=== PATIENT | female | born 1995 | race Caucasian/White ===

== ENCOUNTER → 2021-08-29 15:17 | Outpatient (CLI) | payer OTHER, BC, SELFPAY ==
[2021-08-29 18:46] LABS: Hep C Virus Ab w/Reflex Quant NEGATIVE s/c (NEGATIVE)
[2021-08-31 08:06] LABS: Varicella IgG Antibody 167 index (Immune >165)
[2021-09-01 23:23] LABS: AFP, Serum 59.8 ng/mL (.); Calc Gestational Age Ultrasound (.); Estriol, Free 2.78 ng/mL (.); Inhibin A, Dimeric 157.16 pg/mL (.); Inhibin A, MoM 0.99 (.); Maternal Ethnicity Caucasian (.); Maternal Weight 146 lbs (.); Number of Fetuses No (.); OSBR Risk 1 IN 2591 (.); Results Report (.); Test Results *Screen Negative* (.); hCG, MoM 0.56 (.); hCG, Serum 19247 mIU/mL (.)
== END ==
PROVIDERS: PCP Registered Nurse; Referring Provider Family Medicine; Visit Provider Family Medicine
DX: Z34.00 Encounter for supervision of normal first pregnancy, unspecified trimester (principal); Z3A.16 16 weeks gestation of pregnancy
CPT/HCPCS: 36415; 82105; 82677; 84702; 86336; 86787; 86803

== ENCOUNTER → 2021-09-22 13:53 | Outpatient (CLI) | payer BC, OTHER, SELFPAY ==
--- NOTE | 2021-09-22 13:54 | DI.US.S_ITS ---
PROCEDURE: US OB >= 14 WEEKS FETUS INDICATIONS: 20 WEEK ANATOMY SCAN. OUTSIDE/PRIOR DATING DATA: Last menstrual period (LMP): 04/11/21 LMP-based estimated date of delivery (KENNETH): 01/16/22 First dating scan (date and location): 09/22/21 Estimated date of delivery (KENNETH) from first dating scan: 02/01/22 TECHNIQUE: Real-time scanning was performed of the fetus, with image documentation and biometric measurements. COMPARISON: None. FINDINGS: General: A single living intrauterine gestation is present. Presentation: Cephalic Placenta: Placental position is anterior , without previa. Amniotic fluid index: 10.6 cm, normal range is 5-24 cm. heart rate: 145 beats per minute. Maternal cervical canal: 3.6 cm long. Normal lower limit is 2.5 cm. biometrics: Biparietal diameter: 5.1 cm, 21 weeks 4 days Head circumference: 19.6 cm, 21 weeks 0 days Abdominal circumference: 15.6 cm, 20 weeks 5 days Femur length: 3.5 cm, 21 weeks 0 days Clinically estimated gestational age: 23 weeks 3 days Composite gestational age from present scan: 21 weeks 1 day Estimated weight and percentile: 382 g Anatomic survey: Neuro: Ventricles are non-dilated at less than 10 mm. Cisterna magna and cerebellum are not well seen. Nuchal skin fold: Not well seen. Face: The head position was low in the pelvis limiting evaluation of the profile. Spine: No evidence for spina bifida. Heart: 4-chambered heart is present. Left ventricle outflow tract appears within normal limits. Right ventricle outflow tract not well seen. Diaphragm: Diaphragm is intact. Stomach: Left-sided stomach is present. Kidneys: No hydronephrosis. Normal is less than 5 mm in 2nd trimester, less than 7 mm in 3rd trimester. Cord: 3-vessel cord has orthotopic insertion. Bladder: Normal in size. Extremities: All 4 extremities identified. IMPRESSION: 1. Single living intrauterine in cephalic position with composite gestational age of 21 weeks 1 day. 2. head position located inferiorly in the pelvis limiting evaluation of the facial profile, cerebellum, nuchal fold, and cisterna magna. We strive to produce accurate, complete, and clear reports of imaging services. To assist us in improving patient care, this report was composed using standard report templates and voice recognition software. Therefore, it may contain abnormal punctuation, insertions and/or omissions. Occasional wrong-word or sound-alike substitutions may occur. Though we review the report and make efforts to correct it, we do recommend that the report be read carefully in proper context to recognize any text inaccuracies. Dictated by: Buster Roland M.D. on 09/22/2021 at 18:38 Approved by: Buster Roland M.D. on 09/22/2021 at 18:49
== END ==
PROVIDERS: PCP Registered Nurse; Referring Provider Family Medicine; Visit Provider Family Medicine
DX: Z34.82 Encounter for supervision of other normal pregnancy, second trimester (principal); Z3A.21 21 weeks gestation of pregnancy
CPT/HCPCS: 76811; 76817

== ENCOUNTER → 2021-10-24 09:30 | Outpatient (CLI) | payer BC, OTHER, SELFPAY ==
--- NOTE | 2021-10-24 09:31 | DI.US.S_ITS ---
PROCEDURE: US OB FOLLOW UP INDICATIONS: FOLLOW UP ANATOMY OUTSIDE/PRIOR DATING DATA: Last menstrual period (LMP): April 11, 2020. LMP-based estimated date of delivery (KENNETH): January 16, 2022. First dating scan (date and location): [facility]; September 22, 2021. Estimated date of delivery (KENNETH) from first dating scan: February 01, 2022. TECHNIQUE: Real-time scanning was performed of the fetus, with image documentation and biometric measurements. COMPARISON: September 22, 2021 FINDINGS: General: A single living intrauterine gestation is present. Presentation: Vertex. Amniotic fluid index: 20.9 cm, normal range is 5-24 cm. Single deepest vertical pocket is 7.3 cm. heart rate: 150 beats per minute. Maternal cervical canal: 3.2 cm long. Normal lower limit is 2.5 cm. Other: Ventricles: Bilateral prominence. Right ventricle measures 15.7 mm. Left ventricle measures 10.3 mm. Facial profile: Appears normal Nuchal region: Not evaluated secondary to gestational age. Outflow tracts: Appear normal IMPRESSION: Single intrauterine gestation as detailed above with bilateral prominent ventricles as detailed above. We strive to produce accurate, complete, and clear reports of imaging services. To assist us in improving patient care, this report was composed using standard report templates and voice recognition software. Therefore, it may contain abnormal punctuation, insertions and/or omissions. Occasional wrong-word or sound-alike substitutions may occur. Though we review the report and make efforts to correct it, we do recommend that the report be read carefully in proper context to recognize any text inaccuracies. Dictated by: Brendan Casper M.D. on 10/24/2021 at 11:49 Approved by: Brendan Casper M.D. on 10/24/2021 at 11:52
== END ==
PROVIDERS: PCP Registered Nurse; Referring Provider Family Medicine; Visit Provider Family Medicine
DX: Z36.2 Encounter for other antenatal screening follow-up (principal); Z3A.24 24 weeks gestation of pregnancy
CPT/HCPCS: 76816

== ENCOUNTER → 2021-11-09 10:00 | Outpatient (CLI) | payer BC, OTHER, SELFPAY ==
[2021-11-09 13:18] LABS: Add Manual Diff / Slide Review NO; Basophils Absolute Auto 0 /uL (0-100); Basophils Percent Auto 0.2 % (0-2); Eosinophils Absolute Auto 100 /uL (0-450); Eosinophils Percent Auto 0.6 % (2-4); Hematocrit 33.3 % (36-46); Hemoglobin 11.4 g/dL (12.0-16.0); Lymphocytes Absolute Auto 2000 /uL (1100-4500); Lymphocytes Percent Auto 20.4 % (25-40); Mean Corpuscular HGB Conc 34.3 % (30-36); Mean Corpuscular Hemoglobin 34.5 PG (26-34); Mean Corpuscular Volume 100.6 fL (80-100); Monocytes Absolute Auto 700 /uL (0-900); Monocytes Percent Auto 7.2 % (3-14); Neutrophils Absolute Auto 7000 /uL (1500-7000); Neutrophils Percent Auto 71.6 % (50-75); Platelet Count 339 X10^3/uL (150-400); Red Blood Cell Count 3.31 X10^6/uL (4.0-5.2); Red Cell Distribution Width 13.1 % (11.6-14.8); White Blood Cell Count 9.8 X10^3/uL (4.5-11.0)
[2021-11-09 13:30] LABS: GTT (PREG) 1 Hour PP 50gm Dose 122 mg/dL (76-139)
== END ==
PROVIDERS: PCP Registered Nurse; Referring Provider Family Medicine; Visit Provider Family Medicine
DX: Z34.92 Encounter for supervision of normal pregnancy, unspecified, second trimester (principal); Z3A.25 25 weeks gestation of pregnancy
CPT/HCPCS: 36415; 82950; 85025

== ENCOUNTER 2021-12-16 11:06 | Inpatient (IN) | payer BC, OTHER, SELFPAY ==
[2021-12-16 11:35] VITALS: BP 112/69
[2021-12-16] MEDS: MAGNESIUM SULFATE 20 GM/500 ML IV.SOLN IV (11:50)
[2021-12-16] MEDS: LACTATED RINGERS 1,000 ML 100 ML IV (11:50)
--- NOTE | 2021-12-16 12:15 | PM.OBHP.IH.1 ---
OB HPI Date/Time Date of admission: 12/16/21 Date Patient Seen: 12/16/21 Time Patient Seen: 12:15 History of Present Condition Chief complaint: Eval of Labor/poss water broke/red tint discharge KENNETH Calculator Estimated Delivery Date Method Current WG Current Estimate 02/04/22 Manual 32w 6d Final KENNETH - TETE Other Estimates 01/16/22 LMP (Certain) 35w 4d 02/01/22 Ultrasound #1 33w 2d 02/04/22 Ultrasound #2 32w 6d Estimated Gestational Age (weeks): 32w5d : 1 Para: 0 Narrative: Pt is a 26yo at 32w6d who presented with concerns for ROM. She reports that around 9:30am she felt a gush of fluids. Since then she has continued to leak fluid. No vaginal bleeding. She started to contract around 2 hours ago, about every 3-5 minutes. She states they are uncomfortable but she is able to talk through them. The pt continues to feel her baby move regularly. The pts is complicated by ventriculomegaly, followed by [facility]. She recently had a MRI completed and Neurodevelomental appt. Pt was also found to have a funneling cervix at her [facility] ultrasound. care: good care, initiated at week # (4) and pounds weight gain (27) Dating criteria OB: based on 1st trimester US only Ultrasounds: normal 1st trimester US and abnormal US findings Medical complications OB: none Preadmission Labs Last OB Lab Results: Hematocrit 35.3 % (36-46) L 12/16/21 12:00 12/16/21 Hemoglobin 12.2 g/dL (12.0-16.0) 12/16/21 12:00 12/16/21 Hepatitis C Antibody Negative s/c (NEGATIVE) 08/29/21 15:40 08/29/21 Varicella-Zoster IgG Antibody 167 index (Immune >165) 08/29/21 15:40 08/29/21 Glucose 1 Hour 122 mg/dL (76-139) 11/09/21 11:14 11/09/21 Group B Streptococcus (PCR) Pending 12/16/21 12:00 12/16/21 -: Chlamydia screen: negative, Gonorrhea screen: negative and Urine: negative Genetic Screens: Quad screen: Normal and Cell-free DNA: Normal External Labs Blood type OB HPI: B (+) positive -: Antibody screen: negative, HBsAG: negative, HIV: negative, RPR/VDLR: negative and Urine: negative HCAB: negative Evaluation Evaluation Baseline heart rate: 140 Variability: Moderate (11-25) monitor accelerations: Present Monitor Decelerations: Absent Contraction Frequency (minutes): 5 Status: Category l PFS Medical History (Updated 10/28/21 @ 10:20 by Carlos Ingram LPN) Adopted person Anxiety (~2019) OCD (obsessive compulsive disorder) Seasonal allergies Surgical History (Updated 09/11/21 @ 15:30 by Genesis Francis) Anesthesia H/O of nasal cauterization History of tonsillectomy and adenoidectomy Social History marital status: number of children: 0 household members: spouse lives independently: Yes caregiver/support person: No pets and animals: Yes (1 dog, 3 cats: aware, safe.) education level: college (Engineering.) 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 Getting lots of fruit.) daily servings fruits/ve-4 caffeine: No Type(s) of exercise: walking and normal ROM and activity frequency: 3-4 times per week Meds Home Medications and Allergies Home Medications Medication Instructions Recorded Confirmed Type doxylamine succinate 25 mg tablet 25 mg PO BEDTIME PRN 08/25/21 08/25/21 History (Unisom (doxylamine)) prenat.vits,enoc,hju-rorl-dsnen 1 tab PO DAILY 08/25/21 08/25/21 History pyridoxine (vitamin B6) 100 mg 100 mg PO DAILY tab 08/25/21 08/25/21 History tablet Allergies Allergy/AdvReac Type Severity Reaction Status Date / Time grass pollen Allergy Mild Itchy Verified 08/25/21 14:14 eyes, runny nose. tree and shrub pollen Allergy Mild Itchy Verified 08/25/21 14:14 eyes, runny nose OB Exam Narrative Exam Narrative: Gen: NAD, sitting comfortably in bed, appears well CV: RRR, no murmurs Resp: clear to auscultation bilaterally Abd: soft, nontender, gravid : normal external genitalia, copious amniotic fluid in vagina, cervix appears 1-2cm dilated Ext: no edema Objective Labs Result Diagrams: 12/16/21 12:00 Assessment and Plan Assessment and Plan Assessment and Plan narrative: 26yo at 32w6d here with PPROM and gross ROM. Due to prematurity, discussed case with Dr Quinones at the , who accepts transfer of care. Pt will transfer via airlift. Baby is currently vertex, 1-2cm on speculum exam. Pt is currently stable for transfer. Pt was COVID positive on 12/06, repeat today was negative. complicated by ventriculomegaly and cervical funneling. - Bethamethasone given at 12:27pm - Ampicillin 2g running - Azithromycin 1g given - Magnesium 4g bolus given - Magnesium 2g/hr running - Repeat COVID testing negative - GBS pending
[2021-12-16] MEDS: MAGNESIUM SULFATE 4 GM/100 ML PIGGYBACK IV (12:26)
[2021-12-16] MEDS: BETAMETHASONE 30 MG/5 ML MDV 12 MG IM (12:27)
[2021-12-16 12:35] LABS: Add Manual Diff / Slide Review NO; Basophils Absolute Auto 0 /uL (0-100); Basophils Percent Auto 0.3 % (0-2); Eosinophils Absolute Auto 0 /uL (0-450); Eosinophils Percent Auto 0.5 % (2-4); Hematocrit 35.3 % (36-46); Hemoglobin 12.2 g/dL (12.0-16.0); Lymphocytes Absolute Auto 2200 /uL (1100-4500); Lymphocytes Percent Auto 22.1 % (25-40); Mean Corpuscular HGB Conc 34.5 % (30-36); Mean Corpuscular Hemoglobin 33.3 PG (26-34); Mean Corpuscular Volume 96.7 fL (80-100); Monocytes Absolute Auto 900 /uL (0-900); Monocytes Percent Auto 8.6 % (3-14); Neutrophils Absolute Auto 7000 /uL (1500-7000); Neutrophils Percent Auto 68.5 % (50-75); Platelet Count 337 X10^3/uL (150-400); Red Blood Cell Count 3.65 X10^6/uL (4.0-5.2); Red Cell Distribution Width 12.9 % (11.6-14.8); White Blood Cell Count 10.2 X10^3/uL (4.5-11.0)
[2021-12-16] MEDS: AMPICILLIN 2,000 MG in SODIUM CHLORIDE 0.9% 100 ML 200 ML IV (13:00)
[2021-12-16] MEDS: AZITHROMYCIN 250 MG TABLET 1000 MG PO (13:19)
[2021-12-16 13:51] LABS: Strep Grp B PCR NEG for Grp B Strep
[2021-12-16 14:01] LABS: COVID19 -Nasal RAPID POSITIVE (Negative)
== END 2021-12-16 13:30 | disposition short-term general hospital (02) | DRG 832 ==
LOC: LABOR 12-18 11:08
PROVIDERS: Family Medicine; Admitting Provider Obstetrics & Gynecology; PCP Registered Nurse; Referring Provider Obstetrics & Gynecology; Visit Provider Obstetrics & Gynecology
DX: O42.913 Preterm premature rupture of membranes, unspecified as to length of time between rupture and onset of labor, third trimester (principal); O98.52 Other viral diseases complicating childbirth; Z3A.32 32 weeks gestation of pregnancy; O36.8930 Maternal care for other specified fetal problems, third trimester, not applicable or unspecified; Z86.16 Personal history of COVID-19
CPT/HCPCS: 36415; 59025; 59050; 76815; 84112; 85025; 86850; 86900; 86901; 87081; 87635; 87653; 96360; 96372; 99234; C9803; G0378; G0379; J0290; J0702; J3475